=== PATIENT | male | born 1965 | race Caucasian/White ===

== ENCOUNTER → 2017-04-25 | Outpatient (CLI) | payer OTHER ==
[~2017-04-25] MED LIST: ATORVASTATIN CA20 MG PO; BYDUREON SC; IBUPROFEN200 M1 PO; INVOKAMET PO; LISINOPRIL5 MG PO; METHOCARBAMOL500 MG PO; OMEPRAZOLE20 M1 PO; OXYCODONE HCL5 MG PO; PIOGLITAZONE HC15 MG PO
--- NOTE | 2017-04-25 10:47 | DIAGNOSTIC IMAGING REPORT ---
PROCEDURE: XR CHEST 2 VIEW INDICATION: EDEMA TECHNIQUE: PA and lateral views. COMPARISON: Chest 04/03/2016 FINDINGS: Lungs are clear. Heart and mediastinum are normal. Thorax is normal. IMPRESSION: 1. Negative chest.
== END ==
LOC: XR SRH 10:25
DX: R60.9 Edema, unspecified (principal); F17.200 Nicotine dependence, unspecified, uncomplicated; I10 Essential (primary) hypertension; G47.30 Sleep apnea, unspecified; E11.9 Type 2 diabetes mellitus without complications

== ENCOUNTER 2017-05-05 09:56 | Outpatient (CLI) | payer OTHER ==
--- NOTE | 2017-05-06 08:57 | DIAGNOSTIC IMAGING REPORT ---
PROCEDURE: 2-D M-mode echo Doppler CLINICAL INDICATION: Edema, hypertension, abnormal EKG TECHNIQUE: Standard technique employed COMPARISON: None available FINDINGS: Left ventricular size is normal. LVH is appreciated. ejection fraction is 55% with normal contraction stage I diastolic dysfunction is apparent. The right ventricle is mildly increased in size but exhibits normal function. RVSP in the absence of TR jet could not be calculated. Left and right atrial dimensions are normal. The aortic valve is normal without stenosis or insufficiency the mitral and tricuspid valves are normal pulmonic valve exhibits 1+ PI. There are no abnormalities of the pericardium appreciated aortic root is mildly dilated in size measuring 4.0 cm IMPRESSION: LVH Left ventricular ejection fraction 55% with normal contraction Mild RVE 1+ PI Mild aortic root enlargement measuring 4.0 cm
--- NOTE | 2017-05-08 09:47 | DIAGNOSTIC IMAGING REPORT ---
PROCEDURE: NM CARDIAC STRESS TEST INDICATION: Lower extremity edema, hypertension, diabetes TECHNIQUE: 11 mCi technetium 99m labeled sestamibi was used for rest imaging and 30 mCi for stress imaging. Please see separately dictated exercise treadmill test report for details. I personally reviewed the EKGs provided and there are no ischemic electrocardiographic changes noted. The patient exercised for 9 minutes and 5 seconds on the Mac protocol achieving 91% of age-predicted maximum heart rate. COMPARISON: None FINDINGS: SPECT imaging shows small and mild distal anteroapical defect which is fixed. There is normal wall thickening wall motion in this region suggesting this most likely represents a attenuation artifact. There are no reversible defects seen. Some stress score is two. Gated SPECT imaging shows ejection fraction 61%, end-diastolic volume 93 ml end-systolic volume 37 ml and normal wall thickening and wall motion. IMPRESSION: No infarct or ischemia Normal left ventricular ejection fraction, left ventricular size, wall thickening and wall motion. Low risk study.
== END 2017-05-05 23:00 ==
LOC: US SRH 09:56
PROC: 4A02XM4 Measurement of Cardiac Total Activity, External Approach (ICD-10-PCS; principal; 2017-05-05)
DX: R60.9 Edema, unspecified (principal); G47.30 Sleep apnea, unspecified; I10 Essential (primary) hypertension; E11.9 Type 2 diabetes mellitus without complications; F17.200 Nicotine dependence, unspecified, uncomplicated